=== PATIENT | male | born 2000 | race Caucasian/White ===

== ENCOUNTER 2021-04-23 18:02 | Emergency (ER) | payer BC ==
[~2021-04-23] VITALS: Ht 175.3 cm; Wt 120.0 kg
--- NOTE | 2021-04-23 18:29 | PHYS DOC ---
Past History Additional Past Medical Histor: ODD, ADD (JULIETA MCLEAN APRN) Past Surgical History: Tonsillectomy (JULIETA MCLEAN APRN) General Adult EDM: Chief Complaint: CHEST PAIN HPI: HPI: Patient is a 21-year-old male who presents to the ER today for midsternal chest pain and left arm, nose, ear numbness that started 30 minutes ago while he was playing a card game. Patient reports that all symptoms have resolved except for the left arm numbness. He denies any current chest pain, shortness of breath, nausea, vomiting, lightheadedness. Patient reports a positive history of anxiety, he reports that his anxiety and panic attacks have never been this severe. (JULIETA MCLEAN APRN) Review of Systems: Review of Systems: 14 body systems of the review of systems have been reviewed. See HPI for pertinent positive and negative responses, otherwise all other systems are negative, nonpertinent or noncontributory (JULIETA MCLEAN APRN) Physical Exam: PE: Constitutional: Well developed, well nourished, no acute distress, non-toxic appearance. [] HENT: Normocephalic, atraumatic Eyes: PERRL, conjunctiva normal, no discharge. [] Neck: Normal range of motion, no tenderness, supple, no stridor. [] Cardiovascular:Heart rate tachycardic rhythm, no murmur [] Lungs & Thorax: Bilateral breath sounds clear to auscultation [] Abdomen: Bowel sounds normal, soft, no tenderness, no masses, no pulsatile masses. [] Skin: Warm, dry, no erythema, no rash. [] Back: Normal range of motion Extremities: No tenderness, no cyanosis, no clubbing, ROM intact, no edema. [] Neurologic: Alert and oriented X 3, normal motor function, normal sensory function, no focal deficits noted. [] Psychologic: Affect normal, judgement normal, mood normal. [] (JULIETA MCLEAN APRN) Current Patient Data: Labs: Laboratory Tests Test 04/23/21 18:25 White Blood Count 11.2 x10^3/uL Red Blood Count 5.28 x10^6/uL Hemoglobin 16.0 g/dL Hematocrit 47.3 % Mean Corpuscular Volume 90 fL Mean Corpuscular Hemoglobin 30 pg Mean Corpuscular Hemoglobin Concent 34 g/dL Red Cell Distribution Width 13.8 % Platelet Count 370 x10^3/uL Neutrophils (%) (Auto) 68 % Lymphocytes (%) (Auto) 24 % Monocytes (%) (Auto) 7 % Eosinophils (%) (Auto) 0 % Basophils (%) (Auto) 1 % Neutrophils # (Auto) 7.6 x10^3uL Lymphocytes # (Auto) 2.7 x10^3/uL Monocytes # (Auto) 0.8 x10^3/uL Eosinophils # (Auto) 0.0 x10^3/uL Basophils # (Auto) 0.1 x10^3/uL Sodium Level 140 mmol/L Potassium Level 3.6 mmol/L Chloride Level 105 mmol/L Carbon Dioxide Level 23 mmol/L Anion Gap 12 Blood Urea Nitrogen 10 mg/dL Creatinine 0.9 mg/dL Estimated GFR (Cockcroft-Gault) 107.6 Glucose Level 112 mg/dL Calcium Level 9.8 mg/dL Troponin I Quantitative < 0.017 ng/mL Current Medications Medications (Trade) Dose Ordered Sig/Shamir Route PRN Reason Start Time Stop Time Status Last Admin Dose Admin Sodium Chloride 1,000 ml @ 1,000 mls/hr 1X ONCE IV 04/23/21 19:30 04/23/21 20:29 Vital Signs: Vital Signs Date Time Temp Pulse Resp B/P (MAP) Pulse Ox O2 Delivery O2 Flow Rate FiO2 04/23/21 18:02 98.6 98 18 134/88 100 Room Air (JULIETA MCLEAN APRN) EKG: EKG: EKG performed at 1820 shows sinus rhythm, no STEMI. (JULIETA MCLEAN APRN) Radiology/Procedures: Radiology/Procedures: PROCEDURE: CHEST PA & LATERAL PA and lateral chest. HISTORY: Chest pain pressure, numbness left face and arm PA and lateral views were taken of the chest. Lungs are clear. Heart is normal in size. There is no pleural effusion. IMPRESSION: 1. No acute chest disease. Electronically signed by: Ronny Sanchez MD (04/23/2021 7:17 PM) [facility] DICTATED AND SIGNED BY: RONNY SANCHEZ MD DATE: 04/23/211915 CC: JERROD LEWIS MD; JULIETA MCLEAN APRN ~MTH0 0 [] (JULIETA MCLEAN APRN) Heart Score: C/O Chest Pain: Yes HEART Score for Chest Pain: HEART Score for Chest Pain Response (Comments) Value History Slighlty/Non-Suspicious 0 ECG Normal 0 Age < 45 0 Risk Factors 1 or 2 Risk Factors 1 Troponin < Normal Limit 0 Total 1 Risk Factors: Risk Factors: DM, Current or recent (<one month) smoker, HTN, HLP, family history of CAD, obesity. Risk Scores: Score 0 - 3: 2.5% MACE over next 6 weeks - Discharge Home Score 4 - 6: 20.3% MACE over next 6 weeks - Admit for Clinical Observation Score 7 - 10: 72.7% MACE over next 6 weeks - Early Invasive Strategies (JULIETA MCLEAN APRN) Course & Med Decision Making: Course & Med Decision Making Pertinent Labs and Imaging studies reviewed. (See chart for details) Patient is a 21-year-old male being seen for chest tightness and left arm numbness. Patient lab work is unremarkable. Chest x-ray negative for acute findings his EKG is sinus tachycardia. Patient given a liter of normal saline. Following administration of saline, patient's heart rate was at a regular rate, sinus rhythm. Patient's anxiety was also treated in the ER. Patient does agree that is possible his symptoms are related to his anxiety. I discussed with patient all findings and diagnostic testing as well as the need to follow- up with PCP for further evaluation and treatment or return to the ER if any new or worsening symptoms. Strict return precautions were also discussed at length. Patient voiced understanding and agreement with the plan. Patient is hemodynamically stable at the time of disposition. (JULIETA MCLEAN APRN) Course & Med Decision Making Did not see or evaluate patient. Agree with [facility]'s work-up and disposition per note. (ZENY PINON MD) Dragon Disclaimer: Dragon Disclaimer: This electronic medical record was generated, in whole or in part, using a voice recognition dictation system. (JULIETA MCLEAN APRN) Departure Departure: Impression: Primary Impression: Atypical chest pain Disposition: HOME / SELF CARE / HOMELESS Condition: GOOD Referrals: JERROD LEWIS MD (PCP) Patient Instructions: Anxiety and Panic Attacks, [id number], Chest Pain (Nonspecific) Additional Instructions: You were seen in the ER today for chest pain and left arm numbness. Your physical exam is reassuring. As we have discussed your findings do not indicate that you are having a cardiac event at this time. It is possible that your symptoms are related to anxiety. Please follow-up with your primary care provider regarding your symptoms. Symptoms like the ones you are having today can be very concerning, this is why you need to follow-up with your primary care provider tomorrow regarding your ER visit. If your symptoms return or you develop shortness of breath, nausea, vomiting, lightheadedness, chest pain, extremity numbness please return to the ER. EMERGENCY DEPARTMENT GENERAL DISCHARGE INSTRUCTIONS Thank you for coming to [facility] (ED) today and trusting us with you care. We trust that you had a positivie experience in our Emergency Department. If you wish to speak to the department management, you may call the director at [phone]. YOUR FOLLOW UP INSTRUCTIONS ARE FOLLOWS: 1. Do you have a private Doctor? If you do not have a private doctor, please ask for a resource list of physicians or clinics that may be able to assist you with follow up care. 2. The Emergency Physician has interpreted your x-rays. The X-Ray specialist will also review them. If there is a change in the findings, you will be notified in 48 hours when at all possible. 3. A lab test or culture has been done, your results will be reviewed and you will be notified if you need a change in treatment. ADDITIONAL INSTRUCTIONS AND INFORMATION: 1. Your care today has been supervised by a physician who is specially trained in emergency care. Many problems require more than one evaluation for a complete diagnosis and treatment. We recommend that you schedule your follow up appointment as recommended to ensure complete treatment of you illness or injury. If you are unable to obtain follow up care and continue to have a problem, or if your condition worsens, we recommend that you return to the ED. 2. We are not able to safely determine your condition over the phone nor are we able to give sound medical advice over the phone. For these safety reasons, if you call for medical advice we will ask you to come to the ED for further evaluation. 3. If you have any questions regarding these discharge instructions please call the ED at [phone]. SAFETY INFORMATION: In the interest of safety, wellness, and injury prevention; we encourage you to wear your sealbelt, if you smoke; quite smoking, and we encourage family to use a protective helmet for bicycling and other sporting events that present an increased risk for head injury. IF YOUR SYMPTOMS WORSEN OR NEW SYMPTOMS DEVELOP, OR YOU HAVE CONCERNS ABOUT YOUR CONDITION; OR IF YOUR CONDITION WORSENS WHILE YOU ARE WAITING FOR YOUR FOLLOW UP APPOINTMENT; EITHER CONTACT YOUR PRIMARY CARE DOCTOR, THE PHYSICIAN WHOSE NAME AND NUMBER YOU WERE GIVEN, OR RETURN TO THE ED IMMEDIATELY. JULIETA MCLEAN APRN Apr 23, 2021 18:29 ZENY PINON MD Apr 23, 2021 20:18
[2021-04-23 18:54] LABS: BASO # 0.1 x10^3/uL (0.0-0.2); BASO % 1 % (0-3); EOS % 0 % (0-3); HEMATOCRIT 47.3 % (39.0-53.0); LYMPH # 2.7 x10^3/uL (1.0-4.8); LYMPH % 24 % (24-48); MEAN CORPUSCULAR HEMOGLOBIN 30 pg (25-35); MEAN CORPUSCULAR HGB CONC 34 g/dL (31-37); MEAN CORPUSCULAR VOLUME 90 fL (79-100); MONO # 0.8 x10^3/uL (0.0-1.1); MONO % 7 % (0-9); NEUT # 7.6 x10^3uL (1.8-7.7); NEUT % 68 % (31-73); PLATELET COUNT 370 x10^3/uL (140-400); RED BLOOD COUNT 5.28 x10^6/uL (4.30-5.70); RED CELL DISTRIBUTION WIDTH 13.8 % (11.5-14.5); WHITE BLOOD COUNT 11.2 x10^3/uL (4.0-11.0)
[2021-04-23 19:02] LABS: CALCIUM 9.8 mg/dL (8.5-10.1); CREATININE 0.9 mg/dL (0.7-1.3); GFR 107.6; POTASSIUM 3.6 mmol/L (3.5-5.1)
--- NOTE | 2021-04-23 19:20 | RAD ---
PA and lateral chest. HISTORY: Chest pain pressure, numbness left face and arm PA and lateral views were taken of the chest. Lungs are clear. Heart is normal in size. There is no p leural effusion. IMPRESSION: 1. No acute chest disease. Electronically signed by: Ronny Sanchez MD (04/23/2021 7:17 PM) [facility]
[2021-04-23] MEDS ORDERED: IV NORMAL SALINE 1,000ML 1,000 ML IV ONE (19:30)
[2021-04-23] MEDS ORDERED: diazePAM 5 MG TABLET. PO ONE (19:45)
[2021-04-23 20:45] VITALS: BP 144/90
--- NOTE | 2021-04-26 13:08 | EKG ---
[address] [address] Test Date: 2021-04-23 Test Time: 18:20:06 Pat Name: TIFFANY KELLY Department: Room: Gender: M [employer]: JEFE : 2000 Requested By: JULIETA MCLEAN Order Number: [id number] Reading MD: Measurements Intervals [place] Rate: 101 P: 86 [place]: 142 QRS: 20 QRSD: 92 T: 16 QT: 322 QTc: 424 Interpretive Statements SINUS TACHYCARDIA OTHERWISE NORMAL ECG RI6.02 No previous ECG available for comparison
== END 2021-04-23 21:10 | disposition home or self-care (01) ==
LOC: ER 18:02
DX: R07.2 Precordial pain (principal); R20.0 Anesthesia of skin
CPT/HCPCS: 36415; 71046; 80048; 84484; 85025; 93005; 96360; 99285; J7030